=== PATIENT | female | born 1990 | race Caucasian/White ===

== ENCOUNTER 2018-04-16 09:00 | Emergency (ER) | payer OTHER ==
--- NOTE | 2018-04-16 09:39 | ED ---
General Adult HPI - General Chief complaint: Skin/Abscess/Foreign Body Stated complaint: Bleeding from rectum Time Seen by Provider: 04/16/18 09:10 Source: patient, RN notes reviewed, old records reviewed Mode of arrival: ambulatory Limitations: no limitations - History of Present Illness Initial comments: 27 -year-old female presenting for evaluation of rectal bleeding. Patient has history of previous hemorrhoids. Over the past 3 days she's had bleeding both with bowel movements and in between bowel movements. She notes some small clots in the toilet. Denies any current medications including no anticoagulants or antiplatelet agents. Denies dyspnea. Denies fever or chills. Denies abdominal pain. She does have some rectal pain. No history of liver disease. No chronic medical problems. Bleeding is bright red. No melena. No history of peptic ulcer disease. - Related Data Home Medications Medication Instructions Recorded Confirmed Naproxen Sodium [Aleve] 220 mg PO Q12HR PRN 04/16/18 04/16/18 Previous Rx's Medication Instructions Recorded Polyethylene Glycol 3350 [Miralax] 17 gm PO DAILY #527 gm 04/16/18 Allergies Allergy/AdvReac Type Severity Reaction Status Date / Time No Known Allergies Allergy Verified 04/16/18 09:23 Review of Systems ROS Statement: Those systems with pertinent positive or pertinent negative responses have been documented in the HPI. ROS Other: All systems not noted in ROS Statement are negative. Past Medical History Additional Past Medical History / Comment(s): hemorrhoids, ectopic History of Any Multi-Drug Resistant Organisms: None Reported Past Surgical History: Tonsillectomy Additional Past Surgical History / Comment(s): fallopian tube removed Past Psychological History: No Psychological Hx Reported Smoking Status: Current every day smoker Past Alcohol Use History: None Reported Past Drug Use History: None Reported General Exam Limitations: no limitations General appearance: alert, in no apparent distress Head exam: Present: atraumatic, normocephalic Eye exam: Present: normal appearance, PERRL ENT exam: Present: normal exam Neck exam: Present: normal inspection. Absent: tenderness, meningismus Respiratory exam: Present: normal lung sounds bilaterally. Absent: respiratory distress Cardiovascular Exam: Present: regular rate, normal rhythm GI/Abdominal exam: Present: soft. Absent: distended, tenderness Rectal exam: Present: hemorrhoids, tenderness (0.5 cm hemorrhoid at the 9 o' clock position. Nonthrombosed.), other (No active bleeding). Absent: black stool, bloody stool Extremities exam: Present: normal inspection, normal capillary refill. Absent: pedal edema Neurological exam: Present: alert, oriented X3 Psychiatric exam: Present: normal affect, normal mood Skin exam: Present: warm, dry, intact. Absent: cyanosis, diaphoretic Course Vital Signs 04/16/18 09:04 Temperature 98.6 F Pulse Rate 88 Respiratory 20 Rate Blood Pressure 137/82 O2 Sat by Pulse 99 Oximetry Medical Decision Making - Medical Decision Making 27-year-old female presenting with rectal bleeding. Patient has no chronic medical conditions. Bleeding is described as bright red. There is no active bleeding on exam, there is one small external hemorrhoid. Hemoglobin is checked and is stable 13.4. Patient is prescribed stool softener, sitz bath, will use Preparation H. Will return with persistent or increased rectal bleeding. Will follow-up with a primary care physician. If bleeding persists may require a gastroenterology follow-up for colonoscopy. - Lab Data Result diagrams: 04/16/18 10:05 04/16/18 10:05 Lab Results 04/16/18 04/16/18 Range/Units 10:05 10:05 WBC 11.7 H (3.8-10.6) k/uL RBC 4.66 (3.80-5.40) m/uL Hgb 13.4 (11.4-16.0) gm/dL Hct 42.4 (34.0-46.0) % MCV 91.0 (80.0-100.0) fL MCH 28.7 (25.0-35.0) pg MCHC 31.6 (31.0-37.0) g/dL RDW 14.0 (11.5-15.5) % Plt Count 378 (150-450) k/uL Neutrophils % 58 % Lymphocytes % 31 % Monocytes % 4 % Eosinophils % 6 % Basophils % 0 % Neutrophils # 6.8 (1.3-7.7) k/uL Lymphocytes # 3.6 (1.0-4.8) k/uL Monocytes # 0.4 (0-1.0) k/uL Eosinophils # 0.7 (0-0.7) k/uL Basophils # 0.1 (0-0.2) k/uL Sodium 140 (137-145) mmol/L Potassium 4.7 (3.5-5.1) mmol/L Chloride 108 H (98-107) mmol/L Carbon Dioxide 27 (22-30) mmol/L Anion Gap 5 mmol/L BUN 13 (7-17) mg/dL Creatinine 0.63 (0.52-1.04) mg/dL Est GFR (CKD-EPI)AfAm >90 (>60 ml/min/1.73 sqM) Est GFR (CKD-EPI)NonAf >90 (>60 ml/min/1.73 sqM) Glucose 92 (74-99) mg/dL Calcium 9.6 (8.4-10.2) mg/dL Total Bilirubin 0.2 (0.2-1.3) mg/dL AST 22 (14-36) U/L ALT 30 (9-52) U/L Alkaline Phosphatase 51 (38-126) U/L Total Protein 6.8 (6.3-8.2) g/dL Albumin 3.7 (3.5-5.0) g/dL Disposition Clinical Impression: Hemorrhoids Disposition: HOME SELF-CARE Condition: Good Instructions: Hemorrhoids (ED) Additional Instructions: Please use Preparation H, sitz bath, and take stool softener. He high-fiber diet. Return with worsening symptoms, increased bleeding. Prescriptions: Polyethylene Glycol 3350 [Miralax] 17 gm PO DAILY #527 gm Is patient prescribed a controlled substance at d/c from ED?: No Referrals: None,Stated [Primary Care Provider] - 1-2 days Milagros Vann III, MD [STAFF PHYSICIAN] - 1-2 days Verito Villela MD [STAFF PHYSICIAN] - 1-2 days Time of Disposition: 10:25
[2018-04-16 10:17] LABS: Basophils # (A) 0.1 k/uL (0-0.2); Basophils % (A) 0 %; Eosinophils # (A) 0.7 k/uL (0-0.7); Eosinophils % (A) 6 %; HCT 42.4 % (34.0-46.0); HGB 13.4 gm/dL (11.4-16.0); Lymphocytes # (A) 3.6 k/uL (1.0-4.8); Lymphocytes % (A) 31 %; MCH 28.7 pg (25.0-35.0); MCHC 31.6 g/dL (31.0-37.0); Mean Platelet Volume 6.7; Monocytes # (A) 0.4 k/uL (0-1.0); Monocytes % (A) 4 %; Neutrophils # (A) 6.8 k/uL (1.3-7.7); Neutrophils % (A) 58 %; Platelet Count 378 k/uL (150-450); RBC 4.66 m/uL (3.80-5.40); WBC 11.7 k/uL (3.8-10.6)
[2018-04-16 10:24] LABS: ALT 30 U/L (9-52); AST 22 U/L (14-36); Albumin 3.7 g/dL (3.5-5.0); Alkaline Phosphatase 51 U/L (38-126); Anion Gap 5 mmol/L; Blood Urea Nitrogen 13 mg/dL (7-17); Calcium 9.6 mg/dL (8.4-10.2); Carbon Dioxide 27 mmol/L (22-30); Chloride 108 mmol/L (98-107); Glucose 92 mg/dL (74-99); Potassium 4.7 mmol/L (3.5-5.1); Sodium 140 mmol/L (137-145); Total Bilirubin 0.2 mg/dL (0.2-1.3); Total Protein 6.8 g/dL (6.3-8.2)
[2018-04-16 11:02] VITALS: BP 122/81; PULSE 72; RESP 18; TEMP 98
== END 2018-04-16 10:42 | disposition home or self-care (01) ==
LOC: EC 09:00
DX: K64.4 Residual hemorrhoidal skin tags (principal); F17.200 Nicotine dependence, unspecified, uncomplicated
CPT/HCPCS: 36415; 80053; 85025; 99284

== ENCOUNTER → 2019-06-07 | Outpatient (CLI) | payer BC ==
--- NOTE | 2019-06-07 15:49 | NM ---
EXAMINATION TYPE: NM hepatobiliary w EF DATE OF EXAM: 06/07/2019 COMPARISON: NONE HISTORY: Right upper quadrant pain, nausea and vomiting TECHNIQUE: After the intravenous administration of 5.3 mCi Tc 99m Mebrofenin hepatobiliary scintigrap hy is performed. Immediate images post injection. FINDINGS: There is satisfactory initial accumulation of tracer by the liver. The gallbladder is visualized wit hin 10 minutes. The small bowel activity is noted within 18 minutes. At one hour 8 ounces of oral e nsure plus is given to mimic CCK and gallbladder ejection fraction is calculated at 48 %, in the norm al range. Therefore there is no scintigraphic evidence of cystic or common bile duct obstruction to suggest acute cholecystitis or gallbladder dyskinesia. IMPRESSION: Exam is within normal limits.
== END | disposition home or self-care (01) ==
LOC: RADNMMAIN 13:06
PROVIDERS: ATTEND Family Medicine
DX: R10.11 Right upper quadrant pain (principal); R11.2 Nausea with vomiting, unspecified
CPT/HCPCS: 78226; A9537

== ENCOUNTER 2019-11-13 08:09 | Observation (INO) | payer BC ==
[2019-11-13] MEDS ORDERED: SODIUM CHLORIDE 0.9% 1,000 ML IV STA (08:38)
--- NOTE | 2019-11-13 08:39 | ED ---
General Adult HPI <Abad Bob - Last Filed: 11/13/19 12:27> - General Source: patient, RN notes reviewed Mode of arrival: ambulatory Limitations: no limitations <Sang Rios - Last Filed: 11/13/19 13:39> - General Chief complaint: Abdominal Pain Stated complaint: Abd Pain Time Seen by Provider: 11/13/19 08:26 - History of Present Illness Initial comments: 29-year-old female with a past medical history of ectopic presents to the emergency department for a chief complaint of abdominal pain. Patient states she had abdominal pain start yesterday morning when she woke up. States it starts in the top of her abdomen and then radiates all the way down to the bottom of her abdomen. Patient states that walking worsens his pain and sitting still makes it better. She denies fevers or chills. Patient does report that she has had this pain before and had her gallbladder evaluated but she never heard anything back and the pain went away.Patient has no other complaints at this time including shortness of breath, chest pain, nausea or vomiting, headache, or visual changes. (Sang Rios) - Related Data Home Medications Medication Instructions Recorded Confirmed No Known Home Medications 10/08/18 11/13/19 Allergies Allergy/AdvReac Type Severity Reaction Status Date / Time No Known Allergies Allergy Verified 11/13/19 09:15 Review of Systems ROS Other: All systems not noted in ROS Statement are negative. <Abad Bob - Last Filed: 11/13/19 12:27> ROS Other: All systems not noted in ROS Statement are negative. <Sang Rios - Last Filed: 11/13/19 13:39> ROS Statement: Those systems with pertinent positive or pertinent negative responses have been documented in the HPI. Past Medical History Additional Past Medical History / Comment(s): hemorrhoids, ectopic History of Any Multi-Drug Resistant Organisms: None Reported Past Surgical History: Tonsillectomy Additional Past Surgical History / Comment(s): fallopian tube removed Past Psychological History: No Psychological Hx Reported Smoking Status: Former smoker Past Alcohol Use History: None Reported Past Drug Use History: None Reported <Sang Rios - Last Filed: 11/13/19 13:39> General Exam Limitations: no limitations General appearance: alert, in no apparent distress Head exam: Present: atraumatic, normocephalic, normal inspection Eye exam: Present: normal appearance, PERRL, EOMI. Absent: scleral icterus, conjunctival injection, periorbital swelling ENT exam: Present: normal exam, mucous membranes moist Neck exam: Present: normal inspection, full ROM. Absent: tenderness, meningismus, lymphadenopathy Respiratory exam: Present: normal lung sounds bilaterally. Absent: respiratory distress, wheezes, rales, rhonchi, stridor Cardiovascular Exam: Present: regular rate, normal rhythm, normal heart sounds. Absent: systolic murmur, diastolic murmur, rubs, gallop, clicks GI/Abdominal exam: Present: soft, tenderness (Generalized abdominal tenderness), normal bowel sounds. Absent: distended, guarding, rebound, rigid Neurological exam: Present: alert <Sang Rios - Last Filed: 11/13/19 13:39> Course <Abad Bob - Last Filed: 11/13/19 12:27> <Sang Rios - Last Filed: 11/13/19 13:39> Vital Signs 11/13/19 11/13/19 11/13/19 08:11 10:31 12:50 Temperature 98.2 F Pulse Rate 99 84 76 Respiratory 18 18 18 Rate Blood Pressure 126/81 112/75 105/69 O2 Sat by Pulse 98 98 96 Oximetry - Reevaluation(s) Reevaluation #1: 11/13/19 12:27 PA supervision: I proceeded a [id number] evaluation the patient does present with complaints of abdominal pain workup thus far is negative for any source. She still demonstrates pain to palpation however mostly over the left side. I did discuss the case with Dr. Cervantes. Patient be admitted for inpatient evaluation (Abad Bob) Reevaluation #2: 11/13/19 13:37 After admission patient was found to have a positive Trichomonas. She was treated with Rocephin previously for possible urinary tract infection. I did add Flagyl and doxycycline. Pain likely related to PID. (Sang Rios) Medical Decision Making - Lab Data Result diagrams: 11/13/19 08:58 11/13/19 08:58 <Abad Bob - Last Filed: 11/13/19 12:27> - Lab Data Result diagrams: 11/13/19 08:58 11/13/19 08:58 <Sang Rios - Last Filed: 11/13/19 13:39> - Medical Decision Making Vitals are stable. Patient is afebrile. She has significant abdominal tenderness with guarding throughout the entire abdomen. This is worse with walking. No nausea vomiting or diarrhea. Patient does have leukocytosis of 27. Lactic acid 2.1. Urinalysis does show 53 white cells however patient does have mild vaginal bleeding with a red blood cell count of 182 per to was given a dose of Rocephin. HCG negative. Given the leukocytosis and generalized abdominal tenderness with guarding CT abdomen and pelvis was obtained. CT shows no acute findings to explain patient's abdominal pain. Pelvic exam was not performed. Patient does have some uterine and cervical tenderness however no significant discharge. Gonorrhea Chlamydia and Trichomonas pending. Patient continues to have significant abdominal pain after several different doses of pain me dications. At this point patient is agreeable to admission with observation. (Sang Rios) - Lab Data Lab Results 11/13/19 11/13/19 11/13/19 Range/Units 08:58 08:58 08:58 WBC 26.9 H (3.8-10.6) k/uL RBC 4.62 (3.80-5.40) m/uL Hgb 12.8 (11.4-16.0) gm/dL Hct 38.9 (34.0-46.0) % MCV 84.1 (80.0-100.0) fL MCH 27.8 (25.0-35.0) pg MCHC 33.0 (31.0-37.0) g/dL RDW 14.5 (11.5-15.5) % Plt Count 423 (150-450) k/uL Neutrophils % 85 % Lymphocytes % 9 % Monocytes % 3 % Eosinophils % 2 % Basophils % 0 % Neutrophils # 23.0 H (1.3-7.7) k/uL Lymphocytes # 2.4 (1.0-4.8) k/uL Monocytes # 0.9 (0-1.0) k/uL Eosinophils # 0.5 (0-0.7) k/uL Basophils # 0.1 (0-0.2) k/uL Sodium (137-145) mmol/L Potassium (3.5-5.1) mmol/L Chloride (98-107) mmol/L Carbon Dioxide (22-30) mmol/L Anion Gap mmol/L BUN (7-17) mg/dL Creatinine (0.52-1.04) mg/dL Est GFR (CKD-EPI)AfAm (>60 ml/min/1.73 sqM) Est GFR (CKD-EPI)NonAf (>60 ml/min/1.73 sqM) Glucose (74-99) mg/dL Lactic Ac Sepsis Rflx Plasma Lactic Acid Paulino (0.7-2.0) mmol/L Calcium (8.4-10.2) mg/dL Total Bilirubin (0.2-1.3) mg/dL AST (14-36) U/L ALT (4-34) U/L Alkaline Phosphatase (38-126) U/L Total Protein (6.3-8.2) g/dL Albumin (3.5-5.0) g/dL Amylase (30-110) U/L Lipase (23-300) U/L Urine Color Yellow Urine Appearance Cloudy H (Clear) Urine pH 6.0 (5.0-8.0) Ur Specific [place] 1.026 (1.001-1.035) Urine Protein 1+ H (Negative) Urine Glucose (UA) Negative (Negative) Urine Ketones Negative (Negative) Urine Blood Moderate H (Negative) Urine Nitrite Negative (Negative) Urine Bilirubin Negative (Negative) Urine Urobilinogen 2.0 (<2.0) mg/dL Ur Leukocyte Esterase Large H (Negative) Urine RBC >182 H (0-5) /hpf Urine WBC 53 H (0-5) /hpf Ur Squamous Epith Cells 5 H (0-4) /hpf Urine Bacteria Rare H (None) /hpf Urine Mucus Moderate H (None) /hpf Urine HCG, Qual Not Detected (Not Detectd) Trichomonas Ag (Rapid) (Negative) 11/13/19 11/13/19 11/13/19 Range/Units 08:58 08:58 09:27 WBC (3.8-10.6) k/uL RBC (3.80-5.40) m/uL Hgb (11.4-16.0) gm/dL Hct (34.0-46.0) % MCV (80.0-100.0) fL MCH (25.0-35.0) pg MCHC (31.0-37.0) g/dL RDW (11.5-15.5) % Plt Count (150-450) k/uL Neutrophils % % Lymphocytes % % Monocytes % % Eosinophils % % Basophils % % Neutrophils # (1.3-7.7) k/uL Lymphocytes # (1.0-4.8) k/uL Monocytes # (0-1.0) k/uL Eosinophils # (0-0.7) k/uL Basophils # (0-0.2) k/uL Sodium 138 (137-145) mmol/L Potassium 4.0 (3.5-5.1) mmol/L Chloride 109 H (98-107) mmol/L Carbon Dioxide 22 (22-30) mmol/L Anion Gap 7 mmol/L BUN 7 (7-17) mg/dL Creatinine 0.62 (0.52-1.04) mg/dL Est GFR (CKD-EPI)AfAm >90 (>60 ml/min/1.73 sqM) Est GFR (CKD-EPI)NonAf >90 (>60 ml/min/1.73 sqM) Glucose 125 H (74-99) mg/dL Lactic Ac Sepsis Rflx Y Plasma Lactic Acid Paulino 2.1 H* (0.7-2.0) mmol/L Calcium 8.9 (8.4-10.2) mg/dL Total Bilirubin 0.7 (0.2-1.3) mg/dL AST 23 (14-36) U/L ALT 16 (4-34) U/L Alkaline Phosphatase 85 (38-126) U/L Total Protein 6.6 (6.3-8.2) g/dL Albumin 3.7 (3.5-5.0) g/dL Amylase 57 (30-110) U/L Lipase 86 (23-300) U/L Urine Color Urine Appearance (Clear) Urine pH (5.0-8.0) Ur Specific [place] (1.001-1.035) Urine Protein (Negative) Urine Glucose (UA) (Negative) Urine Ketones (Negative) Urine Blood (Negative) Urine Nitrite (Negative) Urine Bilirubin (Negative) Urine Urobilinogen (<2.0) mg/dL Ur Leukocyte Esterase (Negative) Urine RBC (0-5) /hpf Urine WBC (0-5) /hpf Ur Squamous Epith Cells (0-4) /hpf Urine Bacteria (None) /hpf Urine Mucus (None) /hpf Urine HCG, Qual (Not Detectd) Trichomonas Ag (Rapid) (Negative) 11/13/19 Range/Units 12:14 WBC (3.8-10.6) k/uL RBC (3.80-5.40) m/uL Hgb (11.4-16.0) gm/dL Hct (34.0-46.0) % MCV (80.0-100.0) fL MCH (25.0-35.0) pg MCHC (31.0-37.0) g/dL RDW (11.5-15.5) % Plt Count (150-450) k/uL Neutrophils % % Lymphocytes % % Monocytes % % Eosinophils % % Basophils % % Neutrophils # (1.3-7.7) k/uL Lymphocytes # (1.0-4.8) k/uL Monocytes # (0-1.0) k/uL Eosinophils # (0-0.7) k/uL Basophils # (0-0.2) k/uL Sodium (137-145) mmol/L Potassium (3.5-5.1) mmol/L Chloride (98-107) mmol/L Carbon Dioxide (22-30) mmol/L Anion Gap mmol/L BUN (7-17) mg/dL Creatinine (0.52-1.04) mg/dL Est GFR (CKD-EPI)AfAm (>60 ml/min/1.73 sqM) Est GFR (CKD-EPI)NonAf (>60 ml/min/1.73 sqM) Glucose (74-99) mg/dL Lactic Ac Sepsis Rflx Plasma Lactic Acid Paulino (0.7-2.0) mmol/L Calcium (8.4-10.2) mg/dL Total Bilirubin (0.2-1.3) mg/dL AST (14-36) U/L ALT (4-34) U/L Alkaline Phosphatase (38-126) U/L Total Protein (6.3-8.2) g/dL Albumin (3.5-5.0) g/dL Amylase (30-110) U/L Lipase (23-300) U/L Urine Color Urine Appearance (Clear) Urine pH (5.0-8.0) Ur Specific [place] (1.001-1.035) Urine Protein (Negative) Urine Glucose (UA) (Negative) Urine Ketones (Negative) Urine Blood (Negative) Urine Nitrite (Negative) Urine Bilirubin (Negative) Urine Urobilinogen (<2.0) mg/dL Ur Leukocyte Esterase (Negative) Urine RBC (0-5) /hpf Urine WBC (0-5) /hpf Ur Squamous Epith Cells (0-4) /hpf Urine Bacteria (None) /hpf Urine Mucus (None) /hpf Urine HCG, Qual (Not Detectd) Trichomonas Ag (Rapid) Positive H (Negative) Disposition <Abad Bob - Last Filed: 11/13/19 12:27> Is patient prescribed a controlled substance at d/c from ED?: No Time of Disposition: 12:09 <Sang Rios - Last Filed: 11/13/19 13:39> Clinical Impression: Intractable abdominal pain, Leukocytosis, Trichomoniasis Disposition: ADMITTED IP TO THIS HOSP Condition: Fair
[2019-11-13 09:11] LABS: Basophils # (A) 0.1 k/uL (0-0.2); Basophils % (A) 0 %; Eosinophils # (A) 0.5 k/uL (0-0.7); Eosinophils % (A) 2 %; HCT 38.9 % (34.0-46.0); HGB 12.8 gm/dL (11.4-16.0); Lymphocytes # (A) 2.4 k/uL (1.0-4.8); Lymphocytes % (A) 9 %; MCH 27.8 pg (25.0-35.0); MCV 84.1 fL (80.0-100.0); Mean Platelet Volume 7.3; Monocytes # (A) 0.9 k/uL (0-1.0); Monocytes % (A) 3 %; Neutrophils % (A) 85 %; Platelet Count 423 k/uL (150-450); RBC 4.62 m/uL (3.80-5.40); RDW 14.5 % (11.5-15.5); WBC 26.9 k/uL (3.8-10.6)
[2019-11-13 09:18] LABS: ALT 16 U/L (4-34); AST 23 U/L (14-36); African American GFR (CKD) >90 (>60 ml/min/1.73 sqM); Albumin 3.7 g/dL (3.5-5.0); Alkaline Phosphatase 85 U/L (38-126); Amylase 57 U/L (30-110); Anion Gap 7 mmol/L; Appearance,Urine Cloudy (Clear); Bacteria,Urine Rare /hpf; Bilirubin,Urine Negative (Negative); Blood Urea Nitrogen 7 mg/dL (7-17); Blood,Urine Moderate (Negative); Calcium 8.9 mg/dL (8.4-10.2); Carbon Dioxide 22 mmol/L (22-30); Chloride 109 mmol/L (98-107); Color,Urine Yellow; Glucose 125 mg/dL (74-99); Glucose,Urine (UA) Negative (Negative); Ketones,Urine Negative (Negative); Leukocyte Esterase,Urine Large (Negative); Mucus,Urine Moderate /hpf; Nitrite,Urine Negative (Negative); Non-African American GFR(CKD) >90 (>60 ml/min/1.73 sqM); Protein,Urine 1+ (Negative); RBC,Urine >182 /hpf (0-5); Sodium 138 mmol/L (137-145); Specific Gravity,Urine 1.026 (1.001-1.035); Squamous Epithelial Cell,Urine 5 /hpf (0-4); Total Bilirubin 0.7 mg/dL (0.2-1.3); Total Protein 6.6 g/dL (6.3-8.2); WBC,Urine 53 /hpf (0-5)
[2019-11-13] MEDS ORDERED: HYDROmorphone 0.5 MG/0.5 ML SYRINGE IVP STA ×2 (09:18→10:22)
--- NOTE | 2019-11-13 10:17 | CT ---
EXAMINATION TYPE: CT abdomen pelvis w con DATE OF EXAM: 11/13/2019 COMPARISON: None HISTORY: midline abdominal pelvic pain , epigastric, periumbilical, suprapubic CT DLP: 1446.2 mGycm Automated exposure control for dose reduction was used. TECHNIQUE: Helical acquisition of images was performed from the lung bases through the pelvis. CONTRAST: Performed without Oral Contrast and with IV Contrast, patient injected with 100 mL of Isovue 300. FINDINGS: LUNG BASES: No significant abnormality is appreciated. LIVER: No significant abnormality is appreciated. BILIARY SYSTEM: No significant abnormality is appreciated. PANCREAS: No significant abnormality is seen. SPLEEN: No significant abnormality is seen. ADRENALS: No significant abnormality is seen. KIDNEYS: No significant abnormality is seen. BOWEL: No significant abnormality is seen. Normal appendix. PERITONEUM: No free air is visualized. No free fluid. Small fat-containing umbilical hernia. ADENOPATHY: None visualized PELVIS: No significant abnormality is seen VASCULATURE: No significant abnormality is seen. MUSCULOSKELETAL: No significant abnormality is seen. IMPRESSION: No acute findings to explain patient's abdominal pain.
[2019-11-13] MEDS ORDERED: DICYCLOMINE 10 MG/ML 2 ML AMP IM STA (10:48)
[2019-11-13] MEDS ORDERED: KETOROLAC 30 MG/ML 1 ML VIAL IVP STA (10:48)
[2019-11-13] MEDS ORDERED: NALOXONE 0.4 MG/ML 1 ML VIAL IV PRN (12:09)
[2019-11-13] MEDS ORDERED: ONDANSETRON 4 MG/2 ML VIAL IVP PRN (12:09)
[2019-11-13] MEDS ORDERED: metroNIDAZOLE-NS PMX 500 MG in SALINE 1 100ML.BAG IVPB STA (13:28)
[2019-11-13] MEDS ORDERED: DOXYCYCLINE 100 MG CAP PO STA (13:37)
[2019-11-13] MEDS: SODIUM CHLORIDE 0.9% 1,000 ML IV SCH ×3 (15:03→22:55)
[2019-11-13] MEDS: HYDROmorphone 0.5 MG/0.5 ML SYRINGE IVP PRN ×2 (15:03→19:35)
[2019-11-13] MEDS ORDERED: ACETAMINOPHEN TAB 325 MG TAB PO PRN (17:39)
[2019-11-13] MEDS ORDERED: MORPHINE SULFATE 2 MG/ML SYRINGE IV PRN (17:39)
[2019-11-13] MEDS: KETOROLAC 30 MG/ML 1 ML VIAL IVP PRN (18:01)
--- NOTE | 2019-11-13 18:42 | P.HPIM ---
History of Present Illness H&P Date: 11/13/19 Chief Complaint: Abdominal pain 21-year-old female with PMH of ectopic presents to the ED for abdominal pain. Patient states that she woke up yesterday morning when she experienced abdominal pain. Her pain was initially intermittent but progressed to a constant pain throughout the day. Patient states the pain came in waves, 4-5/10 to 10/10. Pain is localized to her periumbilical and lower abdomen area. Patient reports the pain to be sharp and stabbing in nature. Pain is nonradiating. Patient also reports generalized abdominal pain that is less severe. When her pain persisted into today this prompted her to come to the ED. Patient reports pressure-like sensation when she urinates. She denies any dysuria or hematuria. She denies any diarrhea or constipation. She denies any fever or chills. She reports one episode of nausea and nonbilious nonbloody vomiting. Patient states her last menstrual period was last week and that she is still spotting today. She reports a history of chlamydia one time that was treated. She denies any headache, lower extremity edema, cough, chest pain, palpitations, dizziness, numbness/weakness has tingling of the extremities. In the ED, she was initially tachycardic and her vital signs were otherwise stable. CBC showed a leukocytosis of 26.9 with neutrophilia. CMP showed chloride of 109, glucose of 125. Lactic acid was 2.1. Urinalysis showed moderate blood, large leukocyte esterase. Trichomonas was positive. Urine hCG was negative. Amylase and lipase was negative. CT abdomen and pelvis was unremarkable. Patient was admitted for intractable abdominal pain not relieved with IV pain medication. Review of Systems Pertinent positives and negatives as discussed in HPI, a complete review of systems was performed and all other systems are negative. Past Medical History Additional Past Medical History / Comment(s): hemorrhoids, ectopic History of Any Multi-Drug Resistant Organisms: None Reported Past Surgical History: Tonsillectomy Additional Past Surgical History / Comment(s): fallopian tube removed on the right Past Anesthesia/Blood Transfusion Reactions: No Reported Reaction Past Psychological History: No Psychological Hx Reported Additional Psychological History / Comment(s): Pt resides in [place] with her significant other and their 3 year old son She has been in [place] caring for her mother who has stage IV lung cancer. She returns to [place] once a month by car. Smoking Status: Former smoker Past Alcohol Use History: None Reported Additional Past Alcohol Use History / Comment(s): Pt started smoking in 2007 and quit 6 months ago. Past Drug Use History: None Reported - Past Family History Father History Unknown: Yes Mother Family Medical History: Cancer Additional Family Medical History / Comment(s): Mother has stage IV lung cancer. She is a smoker. Medications and Allergies Home Medications Medication Instructions Recorded Confirmed Type No Known Home Medications 10/08/18 11/13/19 History Allergies Allergy/AdvReac Type Severity Reaction Status Date / Time No Known Allergies Allergy Verified 11/13/19 13:59 Physical Exam Vitals: Vital Signs Temp Pulse Pulse Resp BP BP Pulse Ox 11/13/19 14:11 98.9 F 76 16 123/77 95 11/13/19 12:50 76 18 105/69 96 11/13/19 10:31 84 18 112/75 98 11/13/19 08:11 98.2 F 99 18 126/81 98 Intake and Output 11/13/19 11/13/19 11/13/19 06:59 14:59 22:59 Other: # Voids 1 Weight 94.347 kg General: [non toxic], [no distress], [appears at stated age] Derm: [warm], [dry] Head: [atraumatic], [normocephalic], [symmetric] Eyes: [EOMI], [no lid lag], [anicteric sclera] Mouth: [no lip lesion], [mucus membranes moist] Cardiovascular: [S1S2 reg], [no murmur], [positive DP pulse bilateral], Lungs: [CTA bilateral], [no rhonchi, no rales] , [no accessory muscle use] Abdominal: [soft], [generalized tenderness in all 4 quadrants worsened in the right lower and left lower quadrant], [no guarding], [no appreciable organomegaly], [no rebound tenderness] Ext: [no gross muscle atrophy], [no edema], [no contractures] Neuro: [ CN II-XI grossly intact], [no focal neuro deficits] Psych: [Alert], [oriented], [appropriate affect] Results CBC & Chem 7: 11/13/19 08:58 11/13/19 08:58 Labs: Abnormal Lab Results - Last 24 Hours (Table) 11/13/19 11/13/19 11/13/19 Range/Units 08:58 08:58 08:58 WBC 26.9 H (3.8-10.6) k/uL Neutrophils # 23.0 H (1.3-7.7) k/uL Chloride 109 H (98-107) mmol/L Glucose 125 H (74-99) mg/dL Plasma Lactic Acid Paulino (0.7-2.0) mmol/L Urine Appearance Cloudy H (Clear) Urine Protein 1+ H (Negative) Urine Blood Moderate H (Negative) Ur Leukocyte Esterase Large H (Negative) Urine RBC >182 H (0-5) /hpf Urine WBC 53 H (0-5) /hpf Ur Squamous Epith Cells 5 H (0-4) /hpf Urine Bacteria Rare H (None) /hpf Urine Mucus Moderate H (None) /hpf Trichomonas Ag (Rapid) (Negative) 11/13/19 11/13/19 Range/Units 08:58 12:14 WBC (3.8-10.6) k/uL Neutrophils # (1.3-7.7) k/uL Chloride (98-107) mmol/L Glucose (74-99) mg/dL Plasma Lactic Acid Paulino 2.1 H* (0.7-2.0) mmol/L Urine Appearance (Clear) Urine Protein (Negative) Urine Blood (Negative) Ur Leukocyte Esterase (Negative) Urine RBC (0-5) /hpf Urine WBC (0-5) /hpf Ur Squamous Epith Cells (0-4) /hpf Urine Bacteria (None) /hpf Urine Mucus (None) /hpf Trichomonas Ag (Rapid) Positive H (Negative) Microbiology - Last 24 Hours (Table) 11/13/19 08:58 Urine Culture - Preliminary Urine,Voided Thrombosis Risk Factor Assmnt - Choose All That Apply Any of the Below Risk Factors Present?: Yes Each Factor Represents 1 point: Obesity (BMI >25) Thrombosis Risk Factor Assessment Total Risk Factor Score: 1 Thrombosis Risk Factor Assessment Level: Low Risk Assessment and Plan Assessment: Abdominal pain UTI Trichomonas Lactic acidosis Leukocytosis Patient's abdominal pain is of unknown etiology. Likely related to UTI. CT abdomen and pelvis unremarkable. Urinalysis shows moderate blood and large leukocyte esterase. Start Rocephin for treatment of UTI and follow-up with urine culture. Trichomonas antigen positive. Plans to complete Flagyl 500 mg by mouth twice a day for one week. Patient is elevated lactic acid of 2.1. This is likely related to dehydration. She will be started on normal saline at 100 mL per hour. Lactic acid will be repeated until negative. Her leukocytosis is likely related to the above infection. CBC is ordered for tomorrow morning. DVT prophylaxis: [SCD boots] Discussed with: [Patient] Anticipated discharge: [1-2 days] Anticipated discharge place: [Home] A total of [35] minutes was spent on the care of this complex patient more than 50% of the time was spent in counseling and care coordination.
[2019-11-13] MEDS: metroNIDAZOLE 500 MG TAB PO SCH (20:58)
[2019-11-13 21:48] VITALS: RESP 16
[2019-11-14 06:16] LABS: Basophils % (A) 0 %; Eosinophils # (A) 0.2 k/uL (0-0.7); Eosinophils % (A) 1 %; HCT 35.2 % (34.0-46.0); HGB 10.8 gm/dL (11.4-16.0); Hypochromasia Slight; Lymphocytes # (A) 2.2 k/uL (1.0-4.8); Lymphocytes % (A) 16 %; MCH 26.5 pg (25.0-35.0); MCHC 30.8 g/dL (31.0-37.0); Mean Platelet Volume 7.4; Monocytes # (A) 0.6 k/uL (0-1.0); Monocytes % (A) 4 %; Neutrophils % (A) 78 %; Platelet Count 355 k/uL (150-450); RDW 14.4 % (11.5-15.5); WBC 14.1 k/uL (3.8-10.6)
[2019-11-14 06:30] LABS: African American GFR (CKD) >90 (>60 ml/min/1.73 sqM); Anion Gap 6 mmol/L; Blood Urea Nitrogen 5 mg/dL (7-17); Calcium 8.1 mg/dL (8.4-10.2); Carbon Dioxide 21 mmol/L (22-30); Chloride 110 mmol/L (98-107); Glucose 69 mg/dL (74-99); Non-African American GFR(CKD) >90 (>60 ml/min/1.73 sqM); Sodium 137 mmol/L (137-145)
[2019-11-14 07:28] VITALS: BP 102/68; PULSE 69; TEMP 98.1
[2019-11-14] MEDS: KETOROLAC 30 MG/ML 1 ML VIAL IVP PRN (07:34)
[2019-11-14] MEDS: metroNIDAZOLE 500 MG TAB PO SCH (08:35)
--- NOTE | 2019-11-14 09:38 | P.DS ---
Providers Date of admission: 11/13/19 12:27 Expected date of discharge: 11/14/19 Attending physician: Baltazar Casillas Primary care physician: Stated None Hospital Course: HPI: 21-year-old female with PMH of ectopic presents to the ED for abdominal pain. Patient states that she woke up yesterday morning when she experienced abdominal pain. Her pain was initially intermittent but progressed to a constant pain throughout the day. Patient states the pain came in waves, 4-5/10 to 10/10. Pain is localized to her periumbilical and lower abdomen area. Patient reports the pain to be sharp and stabbing in nature. Pain is nonra diating. Patient also reports generalized abdominal pain that is less severe. When her pain persisted into today this prompted her to come to the ED. Patient reports pressure-like sensation when she urinates. She denies any dysuria or hematuria. She denies any diarrhea or constipation. She denies any fever or chills. She reports one episode of nausea and nonbilious nonbloody vomiting. Patient states her last menstrual period was last week and that she is still spotting today. She reports a history of chlamydia one time that was treated. She denies any headache, lower extremity edema, cough, chest pain, palpitations, dizziness, numbness/weakness has tingling of the extremities. In the ED, she was initially tachycardic and her vital signs were otherwise stable. CBC showed a leukocytosis of 26.9 with neutrophilia. CMP showed chloride of 109, glucose of 125. Lactic acid was 2.1. Urinalysis showed moderate blood, large leukocyte esterase. Trichomonas was positive. Urine hCG was negative. Amylase and lipase was negative. CT abdomen and pelvis was unremarkable. Patient was admitted for intractable abdominal pain not relieved with IV pain medication. Hospital course and treatment: Patient was admitted to the hospital abdominal pain, abdominal CT was negative for acute findings, she was found to have an acute UTI, cultures pending. She also was found to have Trichomonas. She was treated with Rocephin and Flagyl. She had SIRS without sepsis secondary to infection, WBC 26,000 and patient was febrile, fever resolved, WBC down to 14,000. She feels much better with resolution of her abdominal pain. She will be discharged home on Bactrim and Flagyl. She will follow up with PCP as an outpatient. Patient Condition at Discharge: Good Plan - Discharge Summary Discharge Rx Participant: No New Discharge Prescriptions: New Sulfamethox-Tmp 800-160Mg [Bactrim DS 800-160 mg] 1 tab PO Q12HR 7 Days #14 tab metroNIDAZOLE [Flagyl] 500 mg PO TID 7 Days #21 tab cefTRIAXone [Rocephin] 1 gm IVPB Q24HR vial Acetaminophen Tab [Tylenol] 650 mg PO Q6HR PRN tab PRN Reason: Mild Pain Or Fever > 100.5 Discharge Medication List Acetaminophen Tab [Tylenol] 650 mg PO Q6HR PRN tab 11/14/19 [Rx] Sulfamethox-Tmp 800-160Mg [Bactrim DS 800-160 mg] 1 tab PO Q12HR 7 Days #14 tab 11/14/19 [Rx] cefTRIAXone [Rocephin] 1 gm IVPB Q24HR vial 11/14/19 [Rx] metroNIDAZOLE [Flagyl] 500 mg PO TID 7 Days #21 tab 11/14/19 [Rx] Follow up Appointment(s)/Referral(s): None,Stated [Primary Care Provider] - 1-2 days Patient Instructions/Handouts: Doxycycline (By mouth), Metronidazole (By mouth), Pelvic Inflammatory Disease (ED), Pelvic Inflammatory Disease (DC), Pelvic Inflammatory Disease (GEN), Trichomoniasis (ED), Trichomoniasis (DC) Discharge Disposition: HOME SELF-CARE
[2019-11-15 13:42] LABS: C. trachomatis,PCR Positive (Neg,Equiv); Chlamydia trachomatis Source Vagina
[2019-11-15 13:43] LABS: N. gonorrhoeae,PCR Positive (Neg,Equiv); Neisseria Source Vagina
== END 2019-11-14 10:10 | disposition home or self-care (01) ==
LOC: EC 08:09 → 6PED 12:27 → 1SOBS 20:51
PROVIDERS: ADMIT Internal Medicine; ATTEND Internal Medicine
DX: N39.0 Urinary tract infection, site not specified (principal); A59.9 Trichomoniasis, unspecified; E87.2 Acidosis; E86.0 Dehydration; R65.10 Systemic inflammatory response syndrome (SIRS) of non-infectious origin without acute organ dysfunction; R10.84 Generalized abdominal pain; R00.0 Tachycardia, unspecified; E66.9 Obesity, unspecified; Z68.35 Body mass index [BMI] 35.0-35.9, adult; Z87.891 Personal history of nicotine dependence; Z86.19 Personal history of other infectious and parasitic diseases; Z80.1 Family history of malignant neoplasm of trachea, bronchus and lung; Z11.59 Encounter for screening for other viral diseases
CPT/HCPCS: 96367; 96376 ×3; 96366; 96365; 96372; 96375; 99285; 36415; 80053; 80048; 82150; 83605; 83690; 85025 ×2; 81001; 81025; 87040; 87808; 87491; 87591; 87086; 74177; G0378 ×3; U0003; J0500; J0696 ×2; J1885 ×2; J1170; Q9967